=== PATIENT | female | born 1980 | race African-American/Black ===

== ENCOUNTER 2017-10-17 01:17 | Inpatient (IN) | payer SELFPAY ==
[~2017-10-17 01:17] MED LIST: Nitroglycerin 0.4 MG TAB (25 Tab Bottle) ONE
[2017-10-17] MEDS ORDERED: Morphine 4 MG/ML VIAL ONE (01:44)
[2017-10-17] MEDS ORDERED: Lidocaine 1% (PF) 30 ML VIAL ONE (01:44)
[2017-10-17 01:54] LABS: #Basophils 0.2 thou/uL (0.0-0.2); #Eosinphils 0.6 thou/uL (0.0-0.7); #Lymphocytes 4.8 thou/uL (1.20-3.40); #Neutrophils 13.1 thou/uL (1.40-6.50); %Basophils 0.9 % (0.0-1.0); %Eosinophils 3.1 % (0.0-10.0); %Lymphocytes 24.5 % (21.0-51.0); %Monocytes 4.9 % (0.0-10.0); %Neutrophils 66.6 % (42.0-75.0); Hemoglobin 13.7 g/dL (12.0-16.0); Mean Corpuscular HGB CONC 33.3 g/dL (32.0-36.0); Mean Corpuscular Hemoglobin 27.6 pg (27.0-31.0); Mean Corpuscular Volume 82.9 fl (81.0-99.0); Mean Platelet Volume 7.5 fL (7.4-10.4); Platelet Count 460 thou/uL (130-400); RBC Distribution Width 13.2 % (11.5-14.5); Red Blood Cell (RBC) Count 4.97 mill/uL (4.20-5.40); White Blood Cell (WBC) Count 19.7 thou/uL (4.8-10.8)
[2017-10-17 02:07] LABS: PTT 28.6 SEC (22.9-36.1); Prothrombin Time 12.8 SEC (12.0-14.7)
[2017-10-17 02:10] LABS: BHCG - Serum Negative (NEGATIVE); Pregs Control Background? CLEAR/WHITE (CLR/WHITE); Pregs Control Bar Appear? YES (CONTROL BAR)
[2017-10-17] MEDS ORDERED: Nitroglycerin 4.9 GM Bottle ONE (02:19)
[2017-10-17] MEDS ORDERED: Nitroglycerin 50 MG/250 ML BOT 250 ML ONE (02:19)
[2017-10-17] MEDS ORDERED: hydrALAZINE 20 MG/ML VIAL ONE (02:19)
[2017-10-17 02:20] LABS: ALT (SGPT) 18 U/L (8-55); AST (SGOT) 19 U/L (5-34); Albumin 4.3 g/dL (3.5-5.0); Alkaline Phosphatase 75 U/L (40-150); Anion Gap 16 mmol/L (10-20); BUN (Urea Nitrogen) 11 mg/dL (7.0-18.7); Bilirubin, Total 0.3 mg/dL (0.2-1.2); CK (CPK) 266 U/L (29-168); Calc. Creatinine Clearance 0 mL/min (70-130); Calcium 9.4 mg/dL (7.8-10.44); Carbon Dioxide 21 mmol/L (22-29); Chloride 104 mmol/L (98-107); Estimated GFR-MDRD 89; Globulin 3.7 g/dL (2.4-3.5); Glucose 192 mg/dL (70-105); Potassium 3.9 mmol/L (3.5-5.1); Sodium 137 mmol/L (136-145)
[2017-10-17] MEDS ORDERED: Nitroglycerin 100MG/250ML BOT 250 ML ONE (02:20)
[2017-10-17 02:22] LABS: CKMB 1.8 ng/mL (0-6.6)
[2017-10-17] MEDS ORDERED: Furosemide 40 MG/4 ML VIAL ONE (02:23)
[2017-10-17] MEDS ORDERED: Heparin 10,000 UNITS/1 ML VIAL ONE (02:24)
[2017-10-17] MEDS ORDERED: Fentanyl 250 MCG/5 ML VIAL ONE (02:24)
[2017-10-17] MEDS ORDERED: Midazolam HCl 2 mg/2 ml Vial ONE (02:24)
[2017-10-17 02:30] LABS: Troponin I 0.016 ng/mL (< 0.028)
[2017-10-17] MEDS ORDERED: TICAGRELOR 90 MG TABLET ONE (02:33)
[2017-10-17] MEDS ORDERED: Adenosine 6 MG/2 ML VIAL ONE (02:35)
[2017-10-17] MEDS ORDERED: Verapamil 5 MG/2 ML VIAL ONE (02:40)
[2017-10-17] MEDS ORDERED: Mag-Al 1200 mg/1200 mg/30 ML UDCUP PO PRN (02:59)
[2017-10-17] MEDS ORDERED: Acetaminophen/Codeine 30-300mg Tablet PO PRN (02:59)
[2017-10-17] MEDS ORDERED: traMADol HCl 50 MG TAB PO PRN (02:59)
[2017-10-17] MEDS ORDERED: Morphine 4 MG/ML VIAL SLOW IVP PRN (02:59)
[2017-10-17] MEDS ORDERED: cloNIDine 0.1 MG TAB PO PRN (02:59)
[2017-10-17] MEDS ORDERED: Zolpidem Tartrate 5 MG TAB PO PRN (02:59)
[2017-10-17] MEDS ORDERED: Milk Of Magnesia 30 ML UDCUP PO PRN (02:59)
[2017-10-17] MEDS ORDERED: Nitroglycerin 50 MG/250 ML BOT 250 ML IVPB SCH (03:00)
[2017-10-17 04:08] VITALS: BMI 42.9
[2017-10-17 04:09] LABS: CKMB 118.4 ng/mL (0-6.6); Troponin I 5.597 ng/mL (< 0.028)
[2017-10-17] MEDS ORDERED: Ondansetron HCl/PF 4 MG/2 ML Vial SLOW IVP PRN (04:14)
--- NOTE | 2017-10-17 07:57 | RAD ---
CHEST 1 VIEW: Date: 10/17/17 HISTORY: Emergency exam. Chest pain. COMPARISON: None. FINDINGS: Mild interstitial prominence. Mild cephalization of pulmonary vasculature. No pneumothorax. Cardiac silhouette size upper limits of normal, though may be sequelae of hypoinflation. IMPRESSION: Hypoinflation with vascular crowding, which may accentuate the interstitial markings. Follow-up shoul d be obtained. POS: TSERING
[2017-10-17] MEDS ORDERED: Lisinopril 2.5 MG TAB PO SCH (09:00)
[2017-10-17] MEDS ORDERED: Carvedilol 3.125 MG TAB PO SCH (09:00)
[2017-10-17] MEDS ORDERED: FLU VACC QS2017-18 36 mo. & older 0.5 ML SYRINGE IM ONE (09:00)
[2017-10-17] MEDS ORDERED: Iopamidol 370 76% 50 ML VIAL FS ONE (09:18)
[2017-10-17] MEDS ORDERED: Iopamidol 370 76% 100 ML VIAL ONE (09:18)
[2017-10-17] MEDS: TICAGRELOR 90 MG TABLET PO SCH ×2 (09:37→21:06)
[2017-10-17 09:59] LABS: CKMB 487.2 ng/mL (0-6.6); Troponin I 98.346 ng/mL (< 0.028)
--- NOTE | 2017-10-17 11:18 | CON ---
DATE OF CONSULTATION: 10/17/2017 SERVICE: Pulmonary Medicine REASON FOR CONSULTATION: ICU patient. HISTORY OF PRESENT ILLNESS: The patient is a 37-year-old female with past medical h istory significant for nothing. She was in her usual state of health when she started having increas ing chest discomfort. Roughly 30 minutes later, it grew more severe and she developed nausea. She c alled EMS Services and was subsequently brought to the emergency department. She was found to have a n ST elevation [place]. She was taken for an emergent cardiac catheterization. The culprit lesion was id entified, and a stent was placed. After this procedure was performed, she had slow improvement in he r chest discomfort. Her nausea has resolved and she has got an appetite back. Otherwise, there has been no interval change to her condition. She has no known lung disease. She does not have known hy pertension, though is requiring a continuous nitroglycerin drip in order to maintain reasonable blood pressures. PAST SURGICAL HISTORY: None. PAST SURGICAL HISTORY: None. SOCIAL HISTORY: Negative for significant alcohol or illicit drug use. She smokes 1 pack per day and has done so for the better part of 15-20 years. She has no exposure to chemicals, dust, asbestos or tuberculosis. FAMILY HISTORY: Dad had a heart attack at roughly age 40. ALLERGIES: No known drug allergies. MEDICATIONS: A list of her inpatient medications were reviewed. No specific updates were made at th is time. REVIEW OF SYSTEMS: General, head, ears, eyes, nose, throat, cardiovascular, respiratory, GI, , mus culoskeletal, neurologic and skin is negative except as mentioned in the HPI. PHYSICAL EXAMINATION: VITAL SIGNS: Afebrile, pulse 95, blood pressure 135/75, respirations 24, saturation 100% on 2 liters nasal cannula. GENERAL: The patient is awake and alert, in no apparent distress. LUNGS: Decent air entry. There is no prolonged expiratory phase, wheezing, rhonchi, or crackles pre sent. HEART: Normal rate, regular. ABDOMEN: Soft, nontender, nondistended. Bowel sounds are positive. MUSCULOSKELETAL: No cyanosis or clubbing. There is no pitting in the bilateral lower extremities. Good skin turgor throughout. GENITOURINARY: No Daigle. NEUROLOGIC: Grossly nonfocal. LABORATORY DATA: WBC 19.7, hemoglobin 13.7, platelets 460,000. INR 1.0. Troponin 98.3, after revas cularization. Serum negative. Comprehensive metabolic profile is completely unremarkable. BNP below assay limit of 10. IMAGING: Chest x-ray demonstrates soft tissue attenuation with hyperinflated lungs which accentuate interstitial markings. I do not see any clear evidence of volume overload. The heart size is at the upper limits of normal, though this is an AP film. ASSESSMENT: 1. ST elevation myocardial infarction. 2. Tobacco abuse. 3. Hypertension. 4. Obstructive sleep apnea, very strongly suspected. PLAN: We will wean away not the nitro drip as tolerated. The patient has already been initiated on oral blood pressure medications. Pulmonary Critical Care will continue to follow if she remains in t his location for the time being. I have a strong suspicion that she has obstructive sleep apnea rishi use of multiple clinical features and body habitus that is consistent with these findings.
[2017-10-17 12:10] LABS: Hemoglobin A1c 5.5 % (4.0-6.0)
--- NOTE | 2017-10-17 12:40 | CON ---
DATE OF CONSULTATION: 10/17/2017 REASON FOR CONSULTATION: Medical management. CONSULTING PHYSICIAN: Fransisco Lucia M.D. CHIEF COMPLAINT: Chest pain. HISTORY OF PRESENT ILLNESS: This is a 37-year-old female being evaluated in the ICU status post sten t placements for STEMI. The patient apparently came to the ER last night with significant severe joshua st pain, had a STEMI. On arrival, troponin level of 98. The patient states this is the first time t hat she has never noted that she had any history of high blood pressure or cardiac disease. Patient denies any medical history in the past. Admits to having had a weight loss of 40 pounds intentionall y. Patient states that she used to weigh 297 pounds, but at this point in time states that she was a iqra 250. Patient stated that she was in the process of losing weight; however, continued to have wo rsening shortness of breath and chest pain, presented to the ER and was noted to have a STEMI. The p atient received a stent and currently at this point in time is being evaluated in CCU by Internal Med icine team. The patient currently denies any nausea, vomiting, diarrhea, constipation, chest pain, f zechariah, or shortness of breath. States that she has no alleviating or aggravating factors. The patie nt was seen and examined in the CCU. No family at bedside. ALLERGIES: No known drug allergies. PAST SURGICAL HISTORY: None. HOME MEDICATIONS: None. FAMILY HISTORY: Stroke as well as CAD and AK. SOCIAL HISTORY: The patient does smoke a pack to a pack and half of cigarettes a day for the past 15 years and admits to social alcohol. REVIEW OF SYSTEMS: Twelve point review of systems performed. Pertinent positives in the HPI, otherw ise negative. PHYSICAL EXAMINATION: VITAL SIGNS: Blood pressure 155/89, heart rate of 95, temperature of 98, O2 saturations 100% on 2 li ters nasal cannula. GENERAL APPEARANCE: Patient is in no acute distress, lying in bed, obese in nature. HEENT: Pupils equal, round, react to light and accommodation. Extraocular muscles intact. Normocep halic, atraumatic. NECK: Supple, nontender, mobile thyroid. RESPIRATORY: Clear to auscultation bilaterally. Distant lung sounds given large chest. CARDIOVASCULAR: Regular rate and rhythm. S1 an d S2. Again, however, distant heart sounds given ob esity. ABDOMEN: Positive bowel sounds, soft, nontender, rotund. No masses or organomegaly noted. EXTREMITIES: 2+ peripheral pulses. Trace edema bilateral lower extremities noted. NEUROLOGIC: CN II-XII intact. No loss of sensory function. Alert and no loss of motor function. LABORATORY DATA: CBC reveals a white count of 19.7, otherwise normal. BMP reveals bicarbonate of 21 , otherwise normal troponin index and last set of troponins was 98 prior to that was 6. ASSESSMENT: 1. Coronary artery disease. 2. Non-ST elevation myocardial infarction. 3. Hypertension. 4. Obesity. 5. Nicotine addiction. PLAN: 1. At this point in time, we agree with medical management. So far continue with dual antiplatelets , anticholesterol, beta dara as well as TRACEY inhibitor. 2. We will obtain urinalysis for possibility of urinary tract infection. 3. High white count may be reactive to stress versus infection in nature. The patient does not have any other signs or symptoms of SIRS. 4. Weight loss advised. 5. Smoking cessation advised. 6. We will obtain TSH as well and further lab work already placed. We will follow up with results. Thank very much Dr. Lucia for allowing us to participate in the care of this patient. We will fo llow closely with you and make further recommendations from a medical perspective as appropriate. Case and plan discussed with the patient at length. She understands and agrees with this plan. Thank you again for the consultation.
[2017-10-17] MEDS ORDERED: Labetalol HCl 100 MG/20 ML VIAL SLOW IVP PRN (13:10)
--- NOTE | 2017-10-17 19:45 | HP ---
DATE OF CONSULTATION: 10/17/2017 CHIEF COMPLAINT: Acute myocardial infarction. HISTORY OF PRESENT ILLNESS: Damon is a very pleasant 37-year-old who recently presented with acut e onset chest pain. This occurred at 2 hours prior to presentation. She was found to have ST segmen t elevation and recommended direct catheterization lab. She was seen and evaluated in the [facility] prior to transfer. Ms. Jose does have undiagnosed hypertension and diabetes mellitus. She also smokes. PAST SURGICAL HISTORY: As above. SOCIAL HISTORY: Positive tobacco use, intermittent alcohol use. ALLERGIES: None. REVIEW OF SYSTEMS: Ten-point review of systems is reviewed and as above, otherwise negative. PHYSICAL EXAMINATION: VITAL SIGNS: Blood pressure 220/120, heart rate 90, respirations 20. GENERAL: Continued pain. NEUROLOGIC: The patient is alert and oriented times 3 with no focal neurologic deficits. HEENT: Sclerae without icterus. Mouth has moist mucous membranes with normal pallor. NECK: No JVD. Carotid upstroke brisk. No bruits bilaterally. LUNGS: Clear to auscultation with unlabored respirations. BACK: No scoliosis or kyphosis. CARDIAC: Regular rate and rhythm with normal S1 and S2. No S3 or S4 noted. No significant rubs, murmurs, thrills, or gallops noted throughout the precordium. PMI is not displaced. There is no parasternal heave. ABDOMEN: Soft, nontender, nondistended. No peritoneal signs present. No hepatosplenomegaly. No abnormal striae. EXTREMITIES: 2+ femoral and 2+ dorsalis pedis pulses. No cyanosis, clubbing, or edema. SKIN: No gross abnormalities. PERTINENT LABORATORY DATA: Pending. IMPRESSION: Acute myocardial infarction. RECOMMENDATIONS: At this point, we would recommend urgent coronary angiography plus PCI. I discusse d the procedure in full detail with Damon. The risks of the procedure were also discussed. The r isks of the procedure include but are not limited to the following: , stroke, SC, need for rosana gency surgery, loss of limb, bleeding, and infection, as well as a reaction to the dye causing kidney failure and needing long-term dialysis. I also discussed the risks of PCI to include all of the abo ve including coronary dissection and perforation in addition to acute stent thrombosis and restenosis . All questions about the procedure were answered. Given the above, the patient agreed to proceed w ith coronary angiography and possible PCI. All questions were answered. Given the above, the patien t agreed to proceed with the above procedure. The patient's baseline glucose also 190 and likely has undiagnosed diabetes mellitus. We will also manage her blood pressure aggressively. Her will ask Meseret thompson to consult. Otherwise, further recommendations pending the above.
--- NOTE | 2017-10-17 20:37 | EKG ---
Test Reason : POST CATH Blood Pressure : / mmHG Vent. Rate : 090 BPM Atrial Rate : 090 BPM P-R Int : 142 ms QRS Dur : 100 ms QT Int : 432 ms P-R-T Axes : 051 130 088 degrees QTc Int : 528 ms Sinus rhythm with occasional Premature ventricular complexes Indeterminate axis Pulmonary disease pattern Nonspecific T wave abnormality Prolonged QT Abnormal ECG No previous ECGs available Confirmed by LINDA RICHARD, DR. Jackson ([id number]) on 10/17/2017 8:37:09 PM Referred By: Adan DUFFY Confirmed By:DR. Renetta MCKEON MD
[2017-10-17] MEDS: Atorvastatin Calcium 40 MG TAB PO SCH (21:06)
[2017-10-17] MEDS: Carvedilol 3.125 MG TAB PO SCH (21:06)
[2017-10-17 22:47] LABS: Bilirubin Negative (Negative); Blood, Urine Large (Negative); Clarity CLEAR (Clear); Glucose, Urine (Dipstick) Negative (Negative); Leukocyte Negative (Negative); Nitrite Negative (Negative); Protein, Urine (Dipstick) 30 mg/dL (Neg-Trace); Specific Gravity, Urine 1.042 (1.002-1.036)
[2017-10-17 22:49] LABS: Bacteria/HPF Rare-Few HPF (None Seen); Hyaline Casts/LPF 0-3 HYALINE CAST LPF (0-3 Hyaline); Squamous Epithelial 0-3 HPF (0-3); WBC/HPF 0-3 HPF (0-3); Yeast-AUWi Flag 38.8 (0-25.0)
[2017-10-17 22:57] LABS: Yeast-All Forms None Seen HPF (None Seen)
[2017-10-18 04:37] LABS: ALT (SGPT) 49 U/L (8-55); AST (SGOT) 211 U/L (5-34); Albumin 3.6 g/dL (3.5-5.0); Alkaline Phosphatase 63 U/L (40-150); Anion Gap 12 mmol/L (10-20); BUN (Urea Nitrogen) 9 mg/dL (7.0-18.7); Bilirubin, Total 0.4 mg/dL (0.2-1.2); Calc. Creatinine Clearance 169 mL/min (70-130); Calcium 8.9 mg/dL (7.8-10.44); Carbon Dioxide 22 mmol/L (22-29); Chloride 105 mmol/L (98-107); Estimated GFR-MDRD Greater than 90; Globulin 3.2 g/dL (2.4-3.5); Glucose 144 mg/dL (70-105); Potassium 3.2 mmol/L (3.5-5.1); Protein, Total 6.8 g/dL (6.0-8.3); Sodium 136 mmol/L (136-145)
[2017-10-18 05:16] LABS: Band 2 % (5-11); Hemoglobin 11.7 g/dL (12.0-16.0); Lymphocytes 19 % (21-51); MDiff Complete? YES; Mean Corpuscular HGB CONC 32.4 g/dL (32.0-36.0); Mean Corpuscular Hemoglobin 26.6 pg (27.0-31.0); Mean Corpuscular Volume 82.2 fl (81.0-99.0); Mean Platelet Volume 7.7 fL (7.4-10.4); Monocytes 7 % (0-10); Neutrophil 72 % (42-75); Platelet Count 394 thou/uL (130-400); RBC Distribution Width 12.9 % (11.5-14.5); Red Blood Cell (RBC) Count 4.39 mill/uL (4.20-5.40); White Blood Cell (WBC) Count 13.9 thou/uL (4.8-10.8)
[2017-10-18] MEDS: Lisinopril 5 MG TAB PO SCH (08:23)
[2017-10-18] MEDS: Carvedilol 3.125 MG TAB PO SCH ×2 (08:23→21:13)
[2017-10-18] MEDS: TICAGRELOR 90 MG TABLET PO SCH ×2 (08:24→21:13)
--- NOTE | 2017-10-18 10:26 | PDOC.PN ---
- Subjective Encounter Start Date: 10/18/17 Encounter Start Time: 10:25 CC: chest pain sub: pt denies chest pain, denies dyspnea - Objective Vital Signs & Weight: Vital Signs (12 hours) Temp Pulse Resp BP BP BP Pulse Ox 10/18/17 08:23 85 119/74 10/18/17 08:00 98.9 F 85 16 97 10/18/17 07:37 98.9 F 85 16 146/91 H 97 10/18/17 04:01 98.6 F 81 17 127/75 98 10/18/17 00:20 99.3 F 90 18 148/82 H 100 10/17/17 22:35 99.3 F 90 18 98 Most Recent Monitor Data Heart Rate from ECG 81 NIBP 153/76 NIBP BP-Mean 95 Respiration from ECG 20 SpO2 100 I&O: 10/17/17 10/18/17 10/19/17 06:59 06:59 06:59 Intake Total 16.6 1750 Output Total 2050 850 Balance -2033.4 900 Result Diagrams: 10/18/17 03:41 10/18/17 03:41 Phys Exam - Physical Examination Constitutional: NAD HEENT: moist MMs Neck: no JVD Respiratory: no wheezing, no rales, no rhonchi Cardiovascular: RRR, no significant murmur, no rub Gastrointestinal: soft, non-tender no guarding, no rebound tenderness Musculoskeletal: no edema Neurological: non-focal, moves all 4 limbs Psychiatric: normal affect, A&O x 3 Skin: no rash Dx/Plan - Plan Pt is 37 yrs old female 1. NSTEMI 2. Chets pain 3. Nicotine abuse 4. Reactive leukocytosis 5. Hypokalemia plan: Replace k Management per cardio Monitor wbc count closely. check cbc in am s/p cath and stent placement. Currently chest pain free case d/w pt & RN
[2017-10-18] MEDS ORDERED: Potassium Chloride 20 MEQ TAB PO SCH (13:15)
--- NOTE | 2017-10-18 20:25 | EKG ---
Test Reason : Blood Pressure : / mmHG Vent. Rate : 086 BPM Atrial Rate : 086 BPM P-R Int : 134 ms QRS Dur : 098 ms QT Int : 446 ms P-R-T Axes : 057 155 -80 degrees QTc Int : 533 ms Sinus rhythm with occasional Premature ventricular complexes Right atrial enlargement Right axis deviation Pulmonary disease pattern T wave abnormality, consider lateral ischemia Prolonged QT Abnormal ECG When compared with ECG of 17-OCT-2017 05:37, Nonspecific T wave abnormality now evident in Inferior leads Confirmed by LINDA RICHARD, SSherri (4) on 10/18/2017 8:25:11 PM Referred By: TATI Confirmed By:DR. Renetta MCKEON MD
[2017-10-18] MEDS: Atorvastatin Calcium 40 MG TAB PO SCH (21:14)
[2017-10-19 07:45] VITALS: BP 107/83; TEMP 98.8
[2017-10-19] MEDS: TICAGRELOR 90 MG TABLET PO SCH (08:16)
[2017-10-19] MEDS: Carvedilol 3.125 MG TAB PO SCH (08:17)
[2017-10-19] MEDS: Lisinopril 5 MG TAB PO SCH (08:18)
[2017-10-19] MEDS ORDERED: Clopidogrel Bisulfate 75 MG TAB PO SCH (09:15)
[2017-10-20] MEDS ORDERED: Clopidogrel Bisulfate 75 MG TAB PO SCH (09:00)
--- NOTE | 2017-10-20 11:44 | DIS ---
DATE OF ADMISSION: 10/17/2017 DATE OF DISCHARGE: 10/19/2017 DISCHARGE DIAGNOSES: 1. Acute myocardial infarction. 2. Hypertension. PROCEDURE: Coronary angiography with urgent stent placement to the US intermediate ramus branch. HOSPITAL COURSE: Damon is a pleasant 37-year-old woman who recently presented with acute onset ch est pain. She was seen by the Emergency Room. She was taken urgently for coronary angiography and w as found to have complete occlusion of the large intermediate ramus branch. She underwent successful stent placement with a bare metal stent to the intermediate ramus branch. Initially, she was found to have significant hypertension. She has no previous history of hypertension. [facility] was consulted . She did well during her hospitalization. I have no further chest pain or pressure noted. Her blo od pressure was well maintained on medical therapy. DISCHARGE MEDICATIONS: Aspirin 81 q.a.m., atorvastatin 40 at bedtime, carvedilol 6.25 b.i.d., lisino pril 5 mg daily, Plavix 75 daily. CONDITION AT DISCHARGE: Stable.
== END 2017-10-19 12:11 | disposition home or self-care (01) | DRG 249 ==
LOC: ERS 01:17 → CCU 01:59 → CCL 02:05 → CCU 02:33 → IMCU/EMU 22:21
PROVIDERS: ADMIT Internal Medicine Cardiovascular Disease; ATTEND Internal Medicine Cardiovascular Disease
PROC: 02703FZ Dilation of Coronary Artery, One Artery with Three Intraluminal Devices, Percutaneous Approach (ICD-10-PCS; principal; 2017-10-17)
PROC: 4A023N7 Measurement of Cardiac Sampling and Pressure, Left Heart, Percutaneous Approach (ICD-10-PCS; 2017-10-17)
PROC: B2111ZZ Fluoroscopy of Multiple Coronary Arteries using Low Osmolar Contrast (ICD-10-PCS; 2017-10-17)
PROC: B2151ZZ Fluoroscopy of Left Heart using Low Osmolar Contrast (ICD-10-PCS; 2017-10-17)
DX: I21.29 ST elevation (STEMI) myocardial infarction involving other sites (principal); Z68.41 Body mass index [BMI] 40.0-44.9, adult; D72.823 Leukemoid reaction; E87.6 Hypokalemia; F17.210 Nicotine dependence, cigarettes, uncomplicated; I25.10 Atherosclerotic heart disease of native coronary artery without angina pectoris; Z82.49 Family history of ischemic heart disease and other diseases of the circulatory system; I10 Essential (primary) hypertension; E66.9 Obesity, unspecified
CPT/HCPCS: 36415; 71045; 76942; 80053; 81003; 81015; 82550; 82553; 83036; 83880; 84443; 84484; 84703; 85025; 85347; 85610; 85730; 92928; 93005; 93010; 93458; 93798; 94760; 96374; 99152; 99153; 99406; A4216; C1725; C1760; C1769; C1876; C1887; J0153; J0360; J1644; J1940; J2001; J2250; J2270; J2405; J3010